=== PATIENT | female | born 2000 | race Caucasian/White ===

== ENCOUNTER 2020-03-08 06:53 | Inpatient (IN) | payer MEDICAID ==
[2020-03-08] MEDS ORDERED: Calcium Carbonate 500 MG Tab.Chew PO PRN (07:22)
[2020-03-08] MEDS ORDERED: Ondansetron 4 MG/2 ML SDV IVPUSH PRN (07:22)
[2020-03-08] MEDS ORDERED: Sodium Chloride 0.9% 10 ML Syringe FLUSH PRN (07:22)
[2020-03-08] MEDS ORDERED: Nalbuphine 10 MG/ML Syringe IVPUSH PRN (07:22)
[2020-03-08] MEDS ORDERED: Oxytocin/Lactated Ringers 10 UNIT/1,000 ML BAG IV SCH (07:30)
[2020-03-08] MEDS ORDERED: Misoprostol 25 MCG (1/4 of 100 MCG) Tab VAG ONE ×2 (08:27→20:45)
[2020-03-08] MEDS ORDERED: ePHEDrine 50 MG/ML SDV IVPUSH PRN (09:48)
[2020-03-08] MEDS ORDERED: diphenhydrAMINE 50 MG/ML SDV IVPUSH PRN (09:48)
[2020-03-08] MEDS: Misoprostol 25 MCG (1/4 of 100 MCG) Tab VAG SCH ×2 (12:41→16:43)
[2020-03-08] MEDS ORDERED: Misoprostol 25 MCG (1/4 of 100 MCG) Tab VAG SCH (12:45)
--- NOTE | 2020-03-08 13:36 | PCM.PREANE ---
Preanesthetic Assessment - Procedure Proposed Procedure: Continuous labor epidural - Anesthesia/Transfusion/Family Hx Anesthesia History: No Prior Anesthesia Transfusion History: No Prior Transfusion(s) - Review of Systems General: No Symptoms Pulmonary: No Symptoms Cardiovascular: No Symptoms Gastrointestinal: No Symptoms Neurological: No Symptoms Other: Reports: None - Physical Assessment Vital Signs: Last Vital Signs Temp 97.9 F 03/08/20 07:11 Pulse 94 03/08/20 07:11 Resp 16 03/08/20 07:11 BP 141/81 H 03/08/20 07:11 Pulse Ox 99 03/08/20 07:11 Height: 1.6 m Weight: 90.174 kg ASA Class: 2 Mental Status: Alert & Oriented x3 Airway Class: Mallampati = 3 Dentition: Reports: Normal Dentition Thyro-Mental Finger Breadths: 3 Mouth Opening Finger Breadths: 3 ROM/Head Extension: Full Lungs: Clear to Auscultation, Normal Respiratory Effort Cardiovascular: Regular Rate, Regular Rhythm - Lab Values: Laboratory Last Values WBC 10.35 K/mm3 (3.98-10.04) H 03/08/20 08:20 RBC 3.75 M/mm3 (3.98-5.22) L 03/08/20 08:20 Hgb 9.7 gm/dl (11.2-15.7) L 03/08/20 08:20 Hct 30.5 % (34.1-44.9) L 03/08/20 08:20 MCV 81.3 fl (79.4-94.8) 03/08/20 08:20 MCH 25.9 pg (25.6-32.2) 03/08/20 08:20 MCHC 31.8 g/dl (32.2-35.5) L 03/08/20 08:20 RDW Std Deviation 35.6 fL (36.4-46.3) L 03/08/20 08:20 Plt Count 246 K/mm3 (182-369) 03/08/20 08:20 MPV 11.9 fl (9.4-12.3) 03/08/20 08:20 Neut % (Auto) 68.1 % (34.0-71.1) 03/08/20 08:20 Lymph % (Auto) 19.9 % (19.3-51.7) 03/08/20 08:20 [place] % (Auto) 9.7 % (4.7-12.5) 03/08/20 08:20 Eos % (Auto) 1.4 (0.7-5.8) 03/08/20 08:20 Baso % (Auto) 0.2 % (0.1-1.2) 03/08/20 08:20 Neut # (Auto) 7.06 K/mm3 (1.56-6.13) H 03/08/20 08:20 Lymph # (Auto) 2.06 K/mm3 (1.18-3.74) 03/08/20 08:20 [place] # (Auto) 1.00 K/mm3 (0.24-0.36) H 03/08/20 08:20 Eos # (Auto) 0.14 K/mm3 (0.04-0.36) 03/08/20 08:20 Baso # (Auto) 0.02 K/mm3 (0.01-0.08) 03/08/20 08:20 BUN 6 mg/dL (7-18) L 03/08/20 08:20 Creatinine 0.7 mg/dL (0.55-1.02) 03/08/20 08:20 Est Cr Clr Drug Dosing 106.93 mL/min 03/08/20 08:20 Estimated GFR (MDRD) > 60 mL/min (>60) 03/08/20 08:20 Uric Acid 3.7 mg/dL (2.6-6.0) 03/08/20 08:20 AST 22 U/L (15-37) 03/08/20 08:20 ALT 27 U/L (14-59) 03/08/20 08:20 Lactate Dehydrogenase 177 U/L (81-234) 03/08/20 08:20 COVID-19 (DARVIN) Negative (NEGATIVE) 03/08/20 08:25 Blood Type O POSITIVE 03/08/20 08:20 Gel Antibody Screen Negative 03/08/20 08:20 - Allergies Allergies/Adverse Reactions: Allergies Allergy/AdvReac Type Severity Reaction Status Date / Time No Known Allergies Allergy Verified 03/08/20 07:22 - Acknowledgements Anesthesia Type Planned: Epidural Pt an Appropriate Candidate for the Planned Anesthesia: Yes Alternatives and Risks of Anesthesia Discussed w Pt/Guardian: Yes Pt/Guardian Understands and Agrees with Anesthesia Plan: Yes PreAnesthesia Questionnaire Cardiovascular History: Reports: Other (See Below) Other Cardiovascular History: gestational HTN Gastrointestinal History: Reports: Other (See Below) Other Gastrointestinal History: history enteritis 2 years ago. Constipation with . Genitourinary History: Reports: STD, Other (See Below) Other Genitourinary History: history chlamydia, treated [facility] History: Reports: - SUBSTANCE USE Smoking Status *Q: Never Smoker Recreational Drug Use History: No - HOME MEDS Home Medications: Home Meds Prenat 115/Iron Fum/Folic/Dss [ 19 Tablet] 1 each PO DAILY 02/02/20 [History] - CURRENT (IN HOUSE) MEDS Current Meds: Current Medications Calcium Carbonate/Glycine (Tums) 1,000 mg PO Q2H PRN PRN Reason: Indigestion Diphenhydramine HCl (Benadryl) 25 mg IVPUSH Q6H PRN PRN Reason: pruritis Ephedrine Sulfate (Ephedrine Sulfate) 5 mg IVPUSH ASDIRECTED PRN PRN Reason: Hypotension Fentanyl (Sublimaze) 100 mcg EPIDUR Q3H PRN PRN Reason: Pain Fentanyl/Bupivacaine HCl (Fentanyl/Bupivacaine/Ns 2 Mcg-0.125% 100 Ml) 100 ml EPIDUR ASDIRECTED PRN PRN Reason: Pain Oxytocin/Lactated Ringer's (Pitocin In Lr 10 Units/1,000 Ml) 10 unit in 1,000 mls @ 500 mls/hr IV .CONTINUOUS FABIAN Lactated Ringer's (Ringers, Lactated) 1,000 mls @ 100 mls/hr IV ASDIRECTED FABIAN Oxytocin/Lactated Ringer's (Pitocin In Lr 10 Units/1,000 Ml) 10 unit in 1,000 mls @ 12 mls/hr IV TITRATE FABIAN; Protocol Misoprostol (Cytotec) 25 mcg VAG ASDIRECTED FABIAN Stop: 03/09/20 12:46 Last Admin: 03/08/20 12:41 Dose: 25 mcg Documented by: Nalbuphine HCl (Nubain) 10 mg IVPUSH Q2H PRN PRN Reason: Pain Ondansetron HCl (Zofran) 4 mg IVPUSH Q4H PRN PRN Reason: Nausea/Vomiting Sodium Chloride (Saline Flush) 10 ml FLUSH ASDIRECTED PRN PRN Reason: Keep Vein Open Discontinued Medications Misoprostol (Cytotec) 50 mcg VAG ONETIME ONE Stop: 03/08/20 08:28 Last Admin: 03/08/20 08:39 Dose: 50 mcg Documented by:
--- NOTE | 2020-03-08 19:05 | PCM.SN.2 ---
- Free Text/Narrative Note: Stiles bulb placed in usual sterile fashion with speculum and stylet. 30 mL instilled in stiles bulb. Patient tolerated well.
[2020-03-09] MEDS: Lactated Ringers 1,000 ML IV SCH ×2 (01:32→21:47)
[2020-03-09] MEDS: Oxytocin/Lactated Ringers 10 UNIT/1,000 ML BAG IV SCH ×2 (01:32→13:48)
--- NOTE | 2020-03-09 08:03 | PCM.LDHP ---
L&D History of Present Illness - General Date of Service: 03/08/20 Admit Problem/Dx: Patient Status Order with Admit Dx/Problem 03/08/20 07:22 Patient Status [ADT] Routine Admission Diagnosis/Problem Admission Diagnosis/Problem - History of Present Illness Introduction:: 19 year old with gestational hypertension admitted for induction. Otherwise uncomplicated . - Related Data Allergies/Adverse Reactions: Allergies Allergy/AdvReac Type Severity Reaction Status Date / Time No Known Allergies Allergy Verified 03/08/20 07:22 Home Medications: Home Meds Prenat 115/Iron Fum/Folic/Dss [ 19 Tablet] 1 each PO DAILY 02/02/20 [History] Past Medical History Cardiovascular History: Reports: Other (See Below) Other Cardiovascular History: gestational HTN Gastrointestinal History: Reports: Other (See Below) Other Gastrointestinal History: history enteritis 2 years ago. Constipation with . Genitourinary History: Reports: STD, Other (See Below) Other Genitourinary History: history chlamydia, treated [facility] History: Reports: Social & Family History - Tobacco Use Smoking Status *Q: Never Smoker - Recreational Drug Use Recreational Drug Use: No H&P Review of Systems - Review of Systems: Review Of Systems: See Below General: Reports: No Symptoms HEENT: Reports: No Symptoms Pulmonary: Reports: No Symptoms Cardiovascular: Reports: No Symptoms Gastrointestinal: Reports: No Symptoms Genitourinary: Reports: No Symptoms Musculoskeletal: Reports: No Symptoms Skin: Reports: No Symptoms Psychiatric: Reports: No Symptoms Neurological: Reports: No Symptoms Hematologic/Lymphatic: Reports: No Symptoms Immunologic: Reports: No Symptoms L&D Exam - Exam Exam: See Below - Vital Signs Vital Signs: Last Vital Signs Temp 36.6 C 03/08/20 07:11 Pulse 94 03/08/20 07:11 Resp 16 03/08/20 07:11 BP 141/81 H 03/08/20 07:11 Pulse Ox 99 03/08/20 07:11 Weight: 90.174 kg - OB Specific Movement: Active Heart Rate (FHR) Variability: Moderate (6-25 bmp) Presentation: Vertex - Montesinos Score Montesinos Score Cervix Position: Midposition Montesinos Score Consistency: Soft Montesinos Score Effacement: >80% Montesinos Score Dilation: 3-4 cm Montesinos Score 's Station: -2 Montesinos Score Total: 9 - Exam General: Alert, Oriented HEENT: PERRLA, Conjunctiva Clear, EACs Clear, EOMI, Hearing Intact, Mucosa Moist & [place], Nares Patent, Normal Nasal Septum, Posterior Pharynx Clear, TMs Clear Neck: Supple, Trachea Midline Lungs: Clear to Auscultation, Normal Respiratory Effort Cardiovascular: Regular Rate, Regular Rhythm GI/Abdominal Exam: Normal Bowel Sounds, Soft, Non-Tender, No Organomegaly, No Distention, No Abnormal Bruit, No Mass, Pelvis Stable Genitourinary: Normal external exam, Normal bimanual exam, Normal speculum exam Back Exam: Normal Inspection, Full Range of Motion Extremities: Normal Inspection, Normal Range of Motion, Non-Tender, No Pedal Edema, Normal Capillary Refill Skin: Warm, Dry, Intact Neurological: Cranial Nerves Intact, Reflexes Equal Bilateral Psychiatric: Alert, Normal Affect, Normal Mood - Patient Data Lab Results Last 24 hrs: Laboratory Results - last 24 hr 03/08/20 03/08/20 03/08/20 Range/Units 08:20 08:20 08:20 WBC 10.35 H (3.98-10.04) K/mm3 RBC 3.75 L (3.98-5.22) M/mm3 Hgb 9.7 L (11.2-15.7) gm/dl Hct 30.5 L (34.1-44.9) % MCV 81.3 (79.4-94.8) fl MCH 25.9 (25.6-32.2) pg MCHC 31.8 L (32.2-35.5) g/dl RDW Std Deviation 35.6 L (36.4-46.3) fL Plt Count 246 (182-369) K/mm3 MPV 11.9 (9.4-12.3) fl Neut % (Auto) 68.1 (34.0-71.1) % Lymph % (Auto) 19.9 (19.3-51.7) % [place] % (Auto) 9.7 (4.7-12.5) % Eos % (Auto) 1.4 (0.7-5.8) Baso % (Auto) 0.2 (0.1-1.2) % Neut # (Auto) 7.06 H (1.56-6.13) K/mm3 Lymph # (Auto) 2.06 (1.18-3.74) K/mm3 [place] # (Auto) 1.00 H (0.24-0.36) K/mm3 Eos # (Auto) 0.14 (0.04-0.36) K/mm3 Baso # (Auto) 0.02 (0.01-0.08) K/mm3 BUN (7-18) mg/dL Creatinine (0.55-1.02) mg/dL Est Cr Clr Drug Dosing mL/min Estimated GFR (MDRD) (>60) mL/min Uric Acid (2.6-6.0) mg/dL AST (15-37) U/L ALT (14-59) U/L Lactate Dehydrogenase (81-234) U/L RPR Non-reactive (NONREACTIVE) COVID-19 (DARVIN) (NEGATIVE) Blood Type O POSITIVE Gel Antibody Screen Negative 03/08/20 03/08/20 Range/Units 08:20 08:25 WBC (3.98-10.04) K/mm3 RBC (3.98-5.22) M/mm3 Hgb (11.2-15.7) gm/dl Hct (34.1-44.9) % MCV (79.4-94.8) fl MCH (25.6-32.2) pg MCHC (32.2-35.5) g/dl RDW Std Deviation (36.4-46.3) fL Plt Count (182-369) K/mm3 MPV (9.4-12.3) fl Neut % (Auto) (34.0-71.1) % Lymph % (Auto) (19.3-51.7) % [place] % (Auto) (4.7-12.5) % Eos % (Auto) (0.7-5.8) Baso % (Auto) (0.1-1.2) % Neut # (Auto) (1.56-6.13) K/mm3 Lymph # (Auto) (1.18-3.74) K/mm3 [place] # (Auto) (0.24-0.36) K/mm3 Eos # (Auto) (0.04-0.36) K/mm3 Baso # (Auto) (0.01-0.08) K/mm3 BUN 6 L (7-18) mg/dL Creatinine 0.7 (0.55-1.02) mg/dL Est Cr Clr Drug Dosing 106.93 mL/min Estimated GFR (MDRD) > 60 (>60) mL/min Uric Acid 3.7 (2.6-6.0) mg/dL AST 22 (15-37) U/L ALT 27 (14-59) U/L Lactate Dehydrogenase 177 (81-234) U/L RPR (NONREACTIVE) COVID-19 (DARVIN) Negative (NEGATIVE) Blood Type Gel Antibody Screen Result Diagrams: 03/08/20 08:20 03/08/20 08:20 Problem List Initiated/Reviewed/Updated: Yes Orders Last 24hrs: Active Orders 24 hr Category Date Time Status Patient Status [ADT] Routine ADT 03/08/20 07:22 Active Activity as Tolerated [RC] PFP Care 03/08/20 07:22 Active Communication Order [RC] ASDIRECTED Care 03/08/20 07:22 Active Communication Order [RC] ASDIRECTED Care 03/08/20 09:49 Active Cooling Warming Measures [RC] ASDIRECTED Care 03/08/20 09:49 Active Non Stress Test [RC] PER UNIT ROUTINE Care 03/08/20 07:22 Active Notify Provider [RC] ASDIRECTED Care 03/08/20 09:48 Active Notify Provider [RC] PFP Care 03/08/20 07:22 Active Notify Provider [RC] PRN Care 03/08/20 07:22 Active Oxygen Therapy [RC] ASDIRECTED Care 03/08/20 09:49 Active Peripheral IV Care [RC] . DIRECTED Care 03/08/20 07:23 Active Pulse Oximetry [RC] ASDIRECTED Care 03/08/20 09:49 Active Vital Signs [RC] PER UNIT ROUTINE Care 03/08/20 07:22 Active Consult to Case Management/Business Objects Report Developer [CONS] Cons 03/08/20 09:06 Active Routine Bupivacaine/fentaNYL/NS [fentaNYL/Bupivacaine/NS 2 MCG- Med 03/08/20 09:48 Active 0.125% 100 ML] 100 ml EPIDUR ASDIRECTED PRN Calcium Carbonate [Tums] Med 03/08/20 07:22 Active 1,000 mg PO Q2H PRN Lactated Ringers [Ringers, Lactated] 1,000 ml Med 03/08/20 07:30 Active IV ASDIRECTED Nalbuphine [Nubain] Med 03/08/20 07:22 Active 10 mg IVPUSH Q2H PRN Ondansetron [Zofran] Med 03/08/20 07:22 Active 4 mg IVPUSH Q4H PRN Oxytocin/Lactated Ringers [Pitocin in LR 10 Units/1,000 Med 03/08/20 07:30 A ctive ML] 10 unit in 1,000 ml IV .CONTINUOUS Oxytocin/Lactated Ringers [Pitocin in LR 10 Units/1,000 Med 03/08/20 07:30 Active ML] 10 unit in 1,000 ml IV TITRATE Sodium Chloride 0.9% [Saline Flush] Med 03/08/20 07:22 Active 10 ml FLUSH ASDIRECTED PRN diphenhydrAMINE [Benadryl] Med 03/08/20 09:48 Active 25 mg IVPUSH Q6H PRN ePHEDrine [ePHEDrine sulfate] Med 03/08/20 09:48 Active 5 mg IVPUSH ASDIRECTED PRN fentaNYL [Sublimaze] Med 03/08/20 09:48 Active 100 mcg EPIDUR Q3H PRN miSOPROStoL [Cytotec] Med 03/08/20 12:45 Active 25 mcg VAG ASDIRECTED Electronic Heart Tones Ext w TOCO [WOMSER] Ot 03/08/20 07:22 Ordered Routine Electronic Heart Tones Internal [WOMSER] Per Unit Ot 03/08/20 07:22 Ordered Routine PIH Panel [OM.PC] Stat Ot 03/08/20 08:20 Ordered Peripheral IV Insertion Adult [OM.PC] Routine Oth 03/08/20 07:22 Ordered Resuscitation Status Routine Resus Stat 03/08/20 07:22 Ordered Medication Orders Calcium Carbonate/Glycine (Tums) 1,000 mg PO Q2H PRN PRN Reason: Indigestion Diphenhydramine HCl (Benadryl) 25 mg IVPUSH Q6H PRN PRN Reason: pruritis Ephedrine Sulfate (Ephedrine Sulfate) 5 mg IVPUSH ASDIRECTED PRN PRN Reason: Hypotension Fentanyl (Sublimaze) 100 mcg EPIDUR Q3H PRN PRN Reason: Pain Fentanyl/Bupivacaine HCl (Fentanyl/Bupivacaine/Ns 2 Mcg-0.125% 100 Ml) 100 ml EPIDUR ASDIRECTED PRN PRN Reason: Pain Oxytocin/Lactated Ringer's (Pitocin In Lr 10 Units/1,000 Ml) 10 unit in 1,000 mls @ 500 mls/hr IV .CONTINUOUS FABIAN Lactated Ringer's (Ringers, Lactated) 1,000 mls @ 100 mls/hr IV ASDIRECTED FABIAN Last Admin: 03/09/20 01:32 Dose: 100 mls/hr Documented by: TAL Oxytocin/Lactated Ringer's (Pitocin In Lr 10 Units/1,000 Ml) 10 unit in 1,000 mls @ 12 mls/hr IV TITRATE FABIAN; Protocol Last Titration: 03/09/20 06:40 Dose: 14 munits/min, 84 mls/hr Documented by: Titration: 03/09/20 05:50 Dose: 12 munits/min, 72 mls/hr Documented by: Titration: 03/09/20 04:50 Dose: 10 munits/min, 60 mls/hr Documented by: Titration: 03/09/20 04:05 Dose: 8 munits/min, 48 mls/hr Documented by: Titration: 03/09/20 03:30 Dose: 6 munits/min, 36 mls/hr Documented by: Titration: 03/09/20 02:54 Dose: 4 munits/min, 24 mls/hr Documented by: Admin: 03/09/20 01:32 Dose: 2 munits/min, 12 mls/hr Documented by: TAL Misoprostol (Cytotec) 25 mcg VAG ASDIRECTED [facility] Stop: 03/09/20 12:46 Last Admin: 03/08/20 16:43 Dose: 25 mcg Documented by: Admin: 03/08/20 12:41 Dose: 25 mcg Documented by: ILA Nalbuphine HCl (Nubain) 10 mg IVPUSH Q2H PRN PRN Reason: Pain Ondansetron HCl (Zofran) 4 mg IVPUSH Q4H PRN PRN Reason: Nausea/Vomiting Sodium Chloride (Saline Flush) 10 ml FLUSH ASDIRECTED PRN PRN Reason: Keep Vein Open Assessment/Plan Comment:: Cytotec induction. Labs normal Plan stiles bulb when able
--- NOTE | 2020-03-09 08:05 | PCM.PNLD ---
Labor Progress Note - VS & Meds Vital Signs: Last Vital Signs Temp 36.6 C 03/08/20 07:11 Pulse 94 03/08/20 07:11 Resp 16 03/08/20 07:11 BP 141/81 H 03/08/20 07:11 Pulse Ox 99 03/08/20 07:11 Active Medications: Current Medications Calcium Carbonate/Glycine (Tums) 1,000 mg PO Q2H PRN PRN Reason: Indigestion Diphenhydramine HCl (Benadryl) 25 mg IVPUSH Q6H PRN PRN Reason: pruritis Ephedrine Sulfate (Ephedrine Sulfate) 5 mg IVPUSH ASDIRECTED PRN PRN Reason: Hypotension Fentanyl (Sublimaze) 100 mcg EPIDUR Q3H PRN PRN Reason: Pain Fentanyl/Bupivacaine HCl (Fentanyl/Bupivacaine/Ns 2 Mcg-0.125% 100 Ml) 100 ml EPIDUR ASDIRECTED PRN PRN Reason: Pain Oxytocin/Lactated Ringer's (Pitocin In Lr 10 Units/1,000 Ml) 10 unit in 1,000 mls @ 500 mls/hr IV .CONTINUOUS FABIAN Lactated Ringer's (Ringers, Lactated) 1,000 mls @ 100 mls/hr IV ASDIRECTED FABIAN Last Admin: 03/09/20 01:32 Dose: 100 mls/hr Documented by: Oxytocin/Lactated Ringer's (Pitocin In Lr 10 Units/1,000 Ml) 10 unit in 1,000 mls @ 12 mls/hr IV TITRATE FABIAN; Protocol Last Titration: 03/09/20 06:40 Dose: 14 munits/min, 84 mls/hr Documented by: Misoprostol (Cytotec) 25 mcg VAG ASDIRECTED FABIAN Stop: 03/09/20 12:46 Last Admin: 03/08/20 16:43 Dose: 25 mcg Documented by: Nalbuphine HCl (Nubain) 10 mg IVPUSH Q2H PRN PRN Reason: Pain Ondansetron HCl (Zofran) 4 mg IVPUSH Q4H PRN PRN Reason: Nausea/Vomiting Sodium Chloride (Saline Flush) 10 ml FLUSH ASDIRECTED PRN PRN Reason: Keep Vein Open Discontinued Medications Misoprostol (Cytotec) 50 mcg VAG ONETIME ONE Stop: 07/23/20 08:28 Last Admin: 03/08/20 08:39 Dose: 50 mcg Documented by: Misoprostol (Cytotec) 25 mcg VAG ONETIME ONE Stop: 03/08/20 20:46 Last Admin: 03/08/20 20:50 Dose: 25 mcg Documented by: - Uterine Contractions Uterine Monitoring Mode: External [place] Contraction Intensity: Mild to Moderate - Monitoring Monitor Mode: External Ultrasound Heart Rate (FHR) Variability: Moderate (6-25 bmp) - Vaginal Exam Dilation (cm): 1 Effacement (Percent): 30 Station: -3 - Labor Progress (Free Text) Labor Progress: Doing well. Spencer bulb in place.
[2020-03-09] MEDS: Oxytocin/Lactated Ringers 20 UNIT/1,000 ML BAG IV SCH (20:16)
[2020-03-10] MEDS ORDERED: Bupivacaine 0.25% 10 ML SDV ONE
[2020-03-10] MEDS: Lactated Ringers 1,000 ML IV SCH ×3 (05:27→16:35)
[2020-03-10] MEDS: fentaNYL 100 MCG/2 ML SDV EPIDUR PRN ×2 (09:24→15:35)
[2020-03-10] MEDS: Bupivacaine/fentaNYL/NS 100 ML Bag EPIDUR PRN ×2 (09:25→16:36)
--- NOTE | 2020-03-10 09:51 | PCM.SN.2 ---
- Free Text/Narrative Note: Patient is 1 para 0 presently at 37+ weeks gestational age admitted for induction of labor for gestational hypertension. She underwent Cytotec basement 4 and Q three-hour intervals. Also had a balloon catheter placed for mechanical cervical dilation. At this time she has had relatively normal heart tones with occasional periods of decreased variability but no decelerations. Her vital signs have been stable with almost all blood pressures within normal limits. Her contraction pattern has been less than optimal even though she has had Pitocin up to 20 mU/m. Adequate frequency of contractions but with internal pressure catheter her MVU's have not been adequate. She had artificial rupture membranes at 1130 hrs. on 03/09/2020. She has just now started to have more discomfort and is asking for an epidural. Her balloon catheter was still in place this a.m. and was removed. An IUPC had been placed last evening for more accurate monitoring of her contractions. Cervix at this time shows 2 cm, 80% effaced, mid position, firm, -3 station. Baby is in cephalic presentation. Amniotic fluid has been released in small amounts and appears clear. Have discussed with patient the options of intervention including continued monitoring with aggressive Pitocin augmentation/induction. Discussed with her h as been the fact that she has had rupture membranes for approximately 20 hours and potential written increased risk for infection if she passes beyond that. She has indicated that she would like to do this naturally if possible. Assessment: 1. 37+ week intrauterine , admitted with diagnosis of gestational hypertension with less than optimal labor and very little cervical change. Patient just now appears to be seen in increase in her contraction intensity. She would like to give this more time and attempt to deliver naturally. 2. Gestational hypertension under good control. Patient blood pressures have normalized. 3. Group B strep screen negative 3. Generally reassuring heart tones Plan: 1. We'll continue aggressive increase in Pitocin induction to achieve adequate labor. No changes noted within the next 4 hours will strongly consider alternative route of delivery to consist of primary lower uterine segment transverse section through Pfannenstiel skin incision under regional block. This procedure, its risks, benefits, limitations, follow-up and locations as far as baby is concerned especially in light of her last 24-48 hours of labor are all discussed in detail with patient. She appears understand. She would like to try natural course at all possible. I do not think this is unreasonable. 2. Monitor for infection. 3. Monitor heart tones closely
[2020-03-10] MEDS: Oxytocin/Lactated Ringers 20 UNIT/1,000 ML BAG IV SCH (15:45)
--- NOTE | 2020-03-10 20:08 | PCM.SN.2 ---
- Free Text/Narrative Note: 19 year old who was admitted on 03/10/2020 at 37-0/7 weeks for the diagnosis of gestational hypertension admitted for induction. Otherwise uncomplicated . Patient received 4 doses of Cytotec started on the evening of 03/08/2020. On the AM of 03/09/2020 patient was started on Pitocin and had a Spencer bulb placed for mechanical dilation of the cervix. At approximately 1130 hrs. on 03/09/2020 she had artificial rupture membranes with resultant clear amniotic fluid. She was given Pitocin throughout that day and into the a.m. of 03/10/2020. At that time Spencer bulb was deflated as it had not come out with dilation of the cervix. Cervix at that time was 2 cm, approximately 90% effaced, somewhat firm with pr esenting part at a -3 station. Intrauterine pressure catheter was placed and Pitocin was continued. The patient underwent epidural for labor analgesia. Decision was made to consider section if no progression of what labor or cervical dilation was noted within the next 3-4 hours. Approximately 3-4 hours after the pressure catheter was placed the patient was noted to have dilation to 3 cm. She then progressed slowly but steadily to about 6-7 cm and rapidly after that. A second fore bag was ruptured at approximately midday on 03/10/2020 with resulting clear amniotic fluid. Patient became completely dilated at approximately 1650 hrs. on 03/10/2020. She pushed for approximately 45 minutes and delivered a viable, soriano, male with Apgars of 8 and 9, weight of 3110 g (6 pounds 13.7 ounces) at 1938 hrs. Baby was placed on mom's abdomen. Nose and mouth were bulb suctioned and the baby was dried with a warm blanket. Pitocin was increased by protocol to facilitate increase in uterine tone and decreased bleeding. 250 mL an hour of IV Pitocin with 20 units in a liter of fluid was used as the postdelivery med. The cord was allowed to pulsate for approximately 2-3 minutes and then was clamped 2 and cut by the baby's father Lai. Cord was obtained. Placenta then delivered in a [place] presentation, appeared intact and complete and was discarded per patient desire. Small episiotomy had been performed and was repaired with 3-0 Monocryl in a routine fashion. Anesthesia was with the labor epidural analgesia. Patient tolerated the repair well. Estimated blood loss 100 mL. Patient plans to bottlefeed. Condition: Good.
[2020-03-10] MEDS ORDERED: Witch Hazel Medicated Pads 40/Jar TOP PRN (20:16)
[2020-03-10] MEDS ORDERED: Benzocaine/Menthol 20%-0.5% Spray 56 GM Canister TOP PRN (20:16)
[2020-03-10] MEDS ORDERED: Docusate Sodium 100 MG Cap PO PRN (20:16)
[2020-03-10] MEDS ORDERED: Acetaminophen 325 MG Tab PO PRN (20:16)
[2020-03-10] MEDS: Ibuprofen 600 MG Tab PO PRN (23:12)
[2020-03-11] MEDS: Ibuprofen 600 MG Tab PO PRN ×2 (03:51→17:14)
[2020-03-11] MEDS ORDERED: Prenatal Multivitamin with Calcium/Folic Acid/Iron Tab PO SCH (09:00)
--- NOTE | 2020-03-12 07:33 | PCM48HPAN ---
Post Anesthesia Note - EVALUATION WITHIN 48HRS OF ANESTHETIC Vital Signs in Normal Range: Yes Patient Participated in Evaluation: Yes Respiratory Function Stable: Yes Airway Patent: Yes Cardiovascular Function Stable: Yes Hydration Status Stable: Yes Pain Control Satisfactory: Yes Nausea and Vomiting Control Satisfactory: Yes Mental Status Recovered: Yes Vital Signs: Last Vital Signs Temp 97.9 F 03/12/20 03:09 Pulse 88 03/12/20 03:09 Resp 14 03/12/20 03:09 BP 136/76 03/12/20 03:09 Pulse Ox 99 03/12/20 03:09
--- NOTE | 2020-03-12 09:25 | PCM.DCSUM1 ---
Discharge Summary - Hospital Course Free Text/Narrative:: 19 year old who was admitted on 03/10/2020 at 37-0/7 weeks for the diagnosis of gestational hypertension admitted for induction. Otherwise uncomplicated . Patient received 4 doses of Cytotec started on the evening of 03/08/2020. On the AM of 03/09/2020 patient was started on Pitocin and had a Spencer bulb placed for mechanical dilation of the cervix. At approximately 1130 hrs. on 03/09/2020 she had artificial rupture membranes with resultant clear amniotic fluid. She was given Pitocin throughout that day and into the a.m. of 03/10/2020. At that time Spencer bulb was deflated as it had not come out with dilation of the cervix. Cervix at that time was 2 cm, approximately 90% effaced, somewhat firm with presenting part at a -3 station. Intrauterine pressure catheter was placed and Pitocin was continued. The patient underwent epidural for labor analgesia. Decision was made to consider section if no progression of what labor or cervical dilation was noted within the next 3-4 hours. Approximately 3-4 hours after the pressure catheter was placed the patient was noted to have dilation to 3 cm. She then progressed slowly but steadily to about 6-7 cm and rapidly after that. A second fore bag was ruptured at approximately midday on with resulting clear amniotic fluid. Patient became completely dilated at approximately 1650 hrs. on 03/10/2020. She pushed for approximately 45 minutes and delivered a viable, soriano, male with Apgars of 8 and 9, weight of 3110 g (6 pounds 13.7 ounces) at 1938 hrs. Baby was placed on mom's abdomen. Nose and mouth were bulb suctioned and the baby was dried with a warm blanket. Pitocin was increased by protocol to facilitate increase in uterine tone and decreased bleeding. 250 mL an hour of IV Pitocin with 20 units in a liter of fluid was used as the postdelivery med. The cord was allowed to pulsate for approximately 2-3 minutes and then was clamped 2 and cut by the baby's father Lai. Cord was obtained. Placenta then delivered in a Mckeon presentation, appeared intact and complete and was discarded per patient desire. Small episiotomy had been performed and was repaired with 3-0 Monocryl in a routine fashion. Anesthesia was with the labor epidural analgesia. Patient tolerated the repair well. Estimated blood loss 100 mL. Patient plans to bottle feed. patient is doing well. She is afebrile. Vital signs stable. She has minimal lochia, was voiding well and is ambulating without concern. Patient is desiring discharge home. Condition: Good. Diagnosis: Stroke: No - Discharge Data Discharge Date: 03/12/20 Discharge Disposition: Home, Self-Care 01 Condition: Good - Referral to Home Health Primary Care Physician: Azra Piper MD - Patient Instructions Diet: Regular Diet as Tolerated Activity: As Tolerated (No intercourse or tampons until bleeding resolves) Driving: May Drive Today Showering/Bathing: May Shower (May take a bath) Notify Provider of: Fever, Increased Pain, Swelling and Redness, Nausea and/or Vomiting - Discharge Plan Home Medications: Home Meds Prenat 115/Iron Fum/Folic/Dss [ 19 Tablet] 1 each PO DAILY 02/02/20 [History] Acetaminophen [Tylenol] 650 mg PO Q4H PRN tablet 03/12/20 [Rx] Ibuprofen [Motrin] 600 mg PO Q4H PRN tablet 03/12/20 [Rx] Referrals: Azra Piper MD [Primary Care Provider] - (Patient is to call clinic for follow-up appointment.) - Discharge Summary/Plan Comment DC Time >30 min.: No Discharge Summary/Plan Comment: Discharge instructions: 1. Discharge home 2. Diet, activity and follow-up discussed with patient. 3. Precautions given concern increased pain, bleeding, temperature, signs/symptoms of DVT/PE. 4. Medications per home medication was printed, discussed with and given to the patient. 5. Return to clinic-Dr. Piper at [facility] to call for appointment. Diagnosis: Term -delivered Condition: Good - Patient Data Vitals - Most Recent: Last Vital Signs Temp 36.6 C 03/12/20 03:09 Pulse 88 03/12/20 03:09 Resp 14 03/12/20 03:09 BP 136/76 03/12/20 03:09 Pulse Ox 99 03/12/20 03:09 Weight - Most Recent: 90.174 kg I&O - Last 24 hours: Intake & Output 03/11/20 03/12/20 03/12/20 22:59 06:59 14:59 Intake Total 360 Balance 360 Med Orders - Current: Current Medications Acetaminophen (Tylenol) 650 mg PO Q4H PRN PRN Reason: mild pain or fever Benzocaine/Menthol (Dermoplast Pain Relief [place]) 0 gm TOP ASDIRECTED PRN PRN Reason: Perineal Comfort Measure Last Admin: 03/10/20 23:13 Dose: 1 applic Documented by: Docusate Sodium (Colace) 100 mg PO BID PRN PRN Reason: Constipation Last Admin: 03/10/20 23:12 Dose: 100 mg Documented by: Ibuprofen (Motrin) 600 mg PO Q4H PRN PRN Reason: Mild pain or fever Last Admin: 03/11/20 17:14 Dose: 600 mg Documented by: Any Multivit/[place]/Iron/Folic Ac ( Plus Iron) 1 each PO DAILY [facility] Romana Boyer (Tucks) 1 pad TOP ASDIRECTED PRN PRN Reason: Perineal Comfort Measure Last Admin: 03/10/20 23:13 Dose: 1 applic Documented by: Discontinued Medications Calcium Carbonate/Glycine (Tums) 1,000 mg PO Q2H PRN PRN Reason: Indigestion Diphenhydramine HCl (Benadryl) 25 mg IVPUSH Q6H PRN PRN Reason: pruritis Ephedrine Sulfate (Ephedrine Sulfate) 5 mg IVPUSH ASDIRECTED PRN PRN Reason: Hypotension Fentanyl (Sublimaze) 100 mcg EPIDUR Q3H PRN PRN Reason: Pain Last Admin: 03/10/20 15:35 Dose: 100 mcg Documented by: Fentanyl/Bupivacaine HCl (Fentanyl/Bupivacaine/Ns 2 Mcg-0.125% 100 Ml) 100 ml EPIDUR ASDIRECTED PRN PRN Reason: Pain Last Admin: 03/10/20 16:36 Dose: 100 ml Documented by: Oxytocin/Lactated Ringer's (Pitocin In Lr 10 Units/1,000 Ml) 10 unit in 1,000 mls @ 500 mls/hr IV .CONTINUOUS FABIAN Lactated Ringer's (Ringers, Lactated) 1,000 mls @ 100 mls/hr IV ASDIRECTED FABIAN Last Admin: 03/10/20 16:35 Dose: 100 mls/hr Documented by: Oxytocin/Lactated Ringer's (Pitocin In Lr 10 Units/1,000 Ml) 10 unit in 1,000 mls @ 12 mls/hr IV TITRATE FABIAN; Protocol Last Titration: 03/09/20 20:16 Dose: 0 munits/min, 0 mls/hr Documented by: Oxytocin/Lactated Ringer's (Pitocin In Lr 20 Units/1,000 Ml) 20 unit in 1,000 mls @ 60 mls/hr IV TITRATE FABIAN; Protocol Last Admin: 03/10/20 15:45 Dose: 84 mls/hr Documented by: Misoprostol (Cytotec) 50 mcg VAG ONETIME ONE Stop: 03/08/20 08:28 Last Admin: 03/08/20 08:39 Dose: 50 mcg Documented by: Misoprostol (Cytotec) 25 mcg VAG ASDIRECTED FABIAN Stop: 03/09/20 12:46 Last Admin: 03/08/20 16:43 Dose: 25 mcg Documented by: Misoprostol (Cytotec) 25 mcg VAG ONETIME ONE Stop: 03/08/20 20:46 Last Admin: 03/08/20 20:50 Dose: 25 mcg Documented by: Nalbuphine HCl (Nubain) 10 mg IVPUSH Q2H PRN PRN Reason: Pain Last Admin: 03/09/20 20:24 Dose: 10 mg Documented by: Ondansetron HCl (Zofran) 4 mg IVPUSH Q4H PRN PRN Reason: Nausea/Vomiting Last Admin: 03/10/20 02:16 Dose: 4 mg Documented by: Sodium Chloride (Saline Flush) 10 ml FLUSH ASDIRECTED PRN PRN Reason: Keep Vein Open
== END 2020-03-12 15:15 | disposition home or self-care (01) | DRG 807 ==
LOC: JD.OB 06:53 → OBSVTOIN 03-10 19:38 → JD.OB 03-10 19:38
PROVIDERS: ADMIT Obstetrics & Gynecology; ATTEND Obstetrics & Gynecology
PROC: 10E0XZZ Delivery of Products of Conception, External Approach (ICD-10-PCS; principal; 2020-03-10)
PROC: 10907ZC Drainage of Amniotic Fluid, Therapeutic from Products of Conception, Via Natural or Artificial Opening (ICD-10-PCS; 2020-03-10)
PROC: 3E0P7VZ Introduction of Hormone into Female Reproductive, Via Natural or Artificial Opening (ICD-10-PCS; 2020-03-10)
PROC: 3E033VJ Introduction of Other Hormone into Peripheral Vein, Percutaneous Approach (ICD-10-PCS; 2020-03-10)
PROC: 4A1HXCZ Monitoring of Products of Conception, Cardiac Rate, External Approach (ICD-10-PCS; 2020-03-10)
DX: O13.4 Gestational [pregnancy-induced] hypertension without significant proteinuria, complicating childbirth (principal); Z37.0 Single live birth; Z3A.37 37 weeks gestation of pregnancy; Z11.59 Encounter for screening for other viral diseases
CPT/HCPCS: 01967; 36415; 51702; 59025; 59409; 82565; 83615; 84450; 84460; 84520; 84550; 85025; 86592; 86850; 86900; 86901; A9270-GY; J2300; J2405; J2590; J3010; J3490; J7120; U0002

== ENCOUNTER 2022-05-13 11:34 | Observation (INO) | payer MEDICAID | END 2022-05-13 12:25 | disposition home or self-care (01) | LOC: JD.OBCHECK 11:34 → JD.OB 11:36 → JD.OBCHECK 11:55 | PROVIDERS: ADMIT Obstetrics & Gynecology; ATTEND Obstetrics & Gynecology | DX: O99.891 Other specified diseases and conditions complicating pregnancy (principal); R51.9 Headache, unspecified; R03.0 Elevated blood-pressure reading, without diagnosis of hypertension; Z3A.37 37 weeks gestation of pregnancy | CPT/HCPCS: 59025 ==

== ENCOUNTER 2022-06-05 11:56 | Inpatient (IN) | payer MEDICAID ==
[~2022-06-05 11:56] MED LIST: Bupivacaine 0.25% 10 ML SDV ONE; Lidocaine 1% 10 ML MDV ONE
[2022-06-05] MEDS ORDERED: Sodium Chloride 0.9% 10 ML Syringe FLUSH PRN (12:39)
[2022-06-05] MEDS ORDERED: Nalbuphine HCl 10 MG/ 1ML Amp IVPUSH PRN (12:39)
[2022-06-05] MEDS ORDERED: Lidocaine 1% 50 ML MDV INJECT ONE (12:39)
[2022-06-05] MEDS ORDERED: Ondansetron 4 MG/2 ML SDV IVPUSH PRN (12:39)
[2022-06-05] MEDS ORDERED: Oxytocin/Lactated Ringers 10 UNIT/1,000 ML BAG IV SCH (12:45)
[2022-06-05] MEDS ORDERED: Misoprostol 25 MCG (1/4 of 100 MCG) Tab VAG ONE (13:00)
[2022-06-05] MEDS ORDERED: Bupivacaine/fentaNYL/NS 100 ML Bag EPIDUR PRN (16:45)
[2022-06-05] MEDS ORDERED: diphenhydrAMINE 50 MG/ML SDV IVPUSH PRN (16:45)
[2022-06-05] MEDS ORDERED: ePHEDrine 50 MG/ML SDV IVPUSH PRN (16:45)
[2022-06-05] MEDS ORDERED: fentaNYL 100 MCG/2 ML SDV EPIDUR PRN (16:45)
[2022-06-05] MEDS: Misoprostol 25 MCG (1/4 of 100 MCG) Tab VAG SCH ×2 (17:08→21:29)
[2022-06-05] MEDS: Lactated Ringers 1,000 ML IV SCH ×2 (19:31→20:11)
[2022-06-05] MEDS ORDERED: Sodium Chloride 0.9% 10 ML Syringe FLUSH SCH (21:00)
[2022-06-06] MEDS ORDERED: Witch Hazel Medicated Pads 40/Jar TOP PRN (00:37)
[2022-06-06] MEDS ORDERED: Acetaminophen 325 MG Tab PO PRN (00:37)
[2022-06-06] MEDS ORDERED: Benzocaine/Menthol 20%-0.5% Spray 78 GM Cannister TOP PRN (00:37)
[2022-06-06] MEDS ORDERED: Docusate Sodium 100 MG Cap PO PRN (00:37)
[2022-06-06] MEDS: Ibuprofen 600 MG Tab PO PRN ×2 (07:44→14:21)
[2022-06-07] MEDS: Ibuprofen 600 MG Tab PO PRN (04:17)
== END 2022-06-07 11:30 | disposition home or self-care (01) | DRG 807 ==
LOC: JD.OBCHECK 11:56 → JD.OB 11:58 → JD.OBCHECK 12:39 → OBSVTOIN 23:52 → JD.OB 23:53
PROVIDERS: ADMIT Obstetrics & Gynecology; ATTEND Obstetrics & Gynecology
PROC: 10E0XZZ Delivery of Products of Conception, External Approach (ICD-10-PCS; principal; 2022-06-05)
PROC: 10907ZC Drainage of Amniotic Fluid, Therapeutic from Products of Conception, Via Natural or Artificial Opening (ICD-10-PCS; 2022-06-05)
PROC: 3E0P7VZ Introduction of Hormone into Female Reproductive, Via Natural or Artificial Opening (ICD-10-PCS; 2022-06-05)
PROC: 0HQ9XZZ Repair Perineum Skin, External Approach (ICD-10-PCS; 2022-06-05)
PROC: 3E0R3BZ Introduction of Anesthetic Agent into Spinal Canal, Percutaneous Approach (ICD-10-PCS; 2022-06-05)
DX: O13.4 Gestational [pregnancy-induced] hypertension without significant proteinuria, complicating childbirth (principal); Z37.0 Single live birth; Z3A.38 38 weeks gestation of pregnancy; O70.0 First degree perineal laceration during delivery; Z86.16 Personal history of COVID-19; O99.02 Anemia complicating childbirth; D64.9 Anemia, unspecified
CPT/HCPCS: 01967; 36415; 51702; 59025; 59409; 82565; 82570; 83615; 84156; 84450; 84460; 84520; 84550; 85025; 86592; 86850; 86900; 86901; A9270-GY; J1200; J2590; J3010; J3490; J7120